=== PATIENT | female | born 1995 | race Two or more races ===

== ENCOUNTER 2019-08-30 08:44 | Emergency (ER) | payer OTHER ==
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
[2019-08-30 11:39] VITALS: BP 131/89
== END 2019-08-30 11:37 | disposition home or self-care (01) ==
LOC: ER 08:44
DX: M62.838 Other muscle spasm (principal); M54.2 Cervicalgia; M54.6 Pain in thoracic spine; R07.89 Other chest pain; V43.52XA Car driver injured in collision with other type car in traffic accident, initial encounter; M62.830 Muscle spasm of back; Z79.3 Long term (current) use of hormonal contraceptives
CPT/HCPCS: 71046; 72050; 81025; 99283